=== PATIENT | female | born 1970 | race Caucasian/White ===

== ENCOUNTER 2017-02-11 23:50 | Emergency (ER) | payer MEDICAID ==
[~2017-02-11] VITALS: Ht 177.8 cm; Wt 90.0 kg
[2017-02-11 23:56] VITALS: BP 133/73
== END 2017-02-12 00:36 | disposition left against medical advice (07) ==
LOC: EMS 23:51
DX: S20.369A Insect bite (nonvenomous) of unspecified front wall of thorax, initial encounter (principal); J45.909 Unspecified asthma, uncomplicated; W57.XXXA Bitten or stung by nonvenomous insect and other nonvenomous arthropods, initial encounter; Y93.89 Activity, other specified; Y92.89 Other specified places as the place of occurrence of the external cause; Y99.8 Other external cause status; Z53.21 Procedure and treatment not carried out due to patient leaving prior to being seen by health care provider